=== PATIENT | male | born 1965 | race Caucasian/White ===

== ENCOUNTER 2021-04-16 16:02 | Emergency (ER) | payer MEDICAID, SELFPAY ==
[2021-04-16 16:05] VITALS: BP 132/84; PULSE 82; RESP 20; TEMP 36.7; O2SAT 98
[2021-04-16] MEDS: HYDROcodone/acetaminophen (*CRX) 5-325 MG TABLET 1 TAB PO (16:59)
[2021-04-16] MEDS: ONDANSETRON HCL ODT 4 MG TABLET PO (17:00)
[2021-04-16] MEDS: KETOROLAC (*BKC) 60 MG/2 ML VIAL IM (17:00)
--- NOTE | 2021-04-16 17:03 | ED.BACK ---
HPI - Back Pain/Injury General Chief Complaint: Back Pain/Injury Stated Complaint: back pain Time Seen by Provider: 04/16/21 16:11 Source: patient and RN notes reviewed Mode of arrival: ambulatory Limitations: no limitations History of Present Illness HPI Narrative: This is a 55 year old male who presents for evaluation of lower back pain. 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 He has lower back pain with movement and bending. He has not taken anything for his pain. He reports having similar pain in the past and he was prescribed flexeril and hydrocodone . He denies nausea, vomiting, abdominal pain, fever, or urinary symptoms. He denies leg weakness, numbness or tingling. Related Data Allergies Allergy/AdvReac Type Severity Reaction Status Date / Time No Known Allergies Allergy Unknown Verified 04/16/21 16:07 Review of Systems Review of Systems: All systems reviewed & are unremarkable except as noted in HPI and below PMFSH Past Medical History Medical History (Updated 04/16/21 @ 17:53 by Kenyetta Thompson MD) Patient denies medical problems Surgical History Surgical History (Updated 04/16/21 @ 17:10 by Kenyetta Thompson MD) No pertinent past surgical history Social History Social History (Updated 04/16/21 @ 17:10 by Kenyetta Thompson MD) Smoking status: Never smoker Exam Const: General: alert Orientation/consciousness: patient oriented x3 Eyes: EOM: EOMs intact bilaterally Chest: Chest palpation & inspection: normal inspection of the chest Resp: Effort & Inspection: normal respiratory effort and no retractions Auscultation: clear to auscultation bilaterally Cardio: Rate: regular rate Rhythm: regular rhythm Heart sounds: no murmurs GI: GI Palp: Yes Soft to palpation, No Tenderness to palpation present (GI) and No Guarding due to palpation present (GI) Auscultation: normal bowel sounds : General: Yes no CVA tenderness Back/Spine/Pelvis: Thoracic/Lumbar Spine: paraspinal muscle tenderness on the left Neuro: General: patient oriented x3, moves all extremities and CN's II-XI intact bilaterally Extrem: General: normal to inspection Psych: Mental Status: mental status grossly normal Affect: normal affect Course Reevaluation(s) Reevaluation #1: Patient states he feels better. He will be discharged with NSAIDs and muscle relaxers. He has not signs at this time to suggest abdominal etiology such as AAA, kidney stone. Date: 04/16/21 Time: 17:51 Vital Signs Vital signs: Vital Signs Temperature 98.1 F 04/16/21 16:05 Pulse Rate 82 04/16/21 16:05 Respiratory Rate 20 04/16/21 16:05 Blood Pressure 132/84 04/16/21 16:05 Pulse Oximetry 98 04/16/21 16:05 Temperature 98.1 F 04/16/21 16:05 Pulse Rate 82 04/16/21 16:05 Respiratory Rate 20 04/16/21 16:05 Blood Pressure 132/84 04/16/21 16:05 Pulse Oximetry 98 04/16/21 16:05 Discharge Plan Discharge Clinical Impression: Strain of lumbar region Patient Disposition: Home, Self-Care Condition: Stable Instructions: Low Back Strain (ED), Acute Low Back Pain (ED), Lower Back Exercises (ED) Additional Instructions: If you develop fever, vomiting , abdominal pain, leg weakness or worsening pain return to [facility]. Follow up with your primary care physician. Prescriptions: New cyclobenzaprine 10 mg tablet 10 mg PO TID Qty: 14 RF: 0 naproxen 500 mg tablet 500 mg PO BID PRN (Reason: pain) Qty: 14 RF: 0 methylprednisolone [Medrol (Jaciel)] 4 mg tablets,dose pack See Rx Instructions .ROUTE .COMPLEX Qty: 21 RF: 0 Follow-up/Referrals: Don Miller MD [Physician] - PHYSICIAN,TREKKING GUIDE [Primary Care Provider] -
== END 2021-04-16 18:21 | disposition home or self-care (01) ==
PROVIDERS: Emergency Provider General Practice
DX: S39.012A Strain of muscle, fascia and tendon of lower back, initial encounter (principal); X50.9XXA Other and unspecified overexertion or strenuous movements or postures, initial encounter
CPT/HCPCS: 96372; 99283; A9270; J1885